=== PATIENT | male | born 1950 | race Caucasian/White ===

== ENCOUNTER 2023-08-21 16:43 | Emergency (ER) | payer OTHER, SELFPAY ==
[2023-08-21 16:46] VITALS: BP 169/97
--- NOTE | 2023-08-21 18:24 | ED.SKININJ ---
HPI-Injury
General
Chief Complaint: Skin Surface Trauma
Source: patient
Exam Limitations: none
Time Seen by Provider: 08/21/23 17:55
Travel History
Have you had any contact with someone who has COVID-19?: No
Do you have any symptoms of coronavirus? Fever > 100 degrees, chills, cough, shortness of breath, sore throat, loss of taste or smell, muscle aches, or headache?: No
History of Present Illness-Injury
Is this injury a work related problem?: No
Is pt an associate of [facility]?: No
Initial Injury comments:
This is a 73 year old male that comes in with c/o fifth finger injury. States that he was slicing Potatoes with his slicer and cut the tip of his fifth finger off. States that his Tetanus was about 6 years ago. States that he does take Aspirin
daily. Denies any fever, chills, nausea, vomiting, diarrhea.
Past History
Past History
ED Past Medical History: CAD, HTN, NE, Psychiatric and Other (Angina)
ED Past Surgical History: Appendectomy, Cardiac (Bypass surgery), Orthopedic (Left knee reconstruction) and Other (Nasal surgery, Eye surgery)
Social History
Tobacco: Former smoker
Alcohol: Occasional
Drug: None
Personal:
Living: alone
Employment: Employed
Family History
Family History: Diabetes, Hypertension and CAD
Review of Systems
Review of Systems
All Other Systems: ROS reviewed and negative except as documented in HPI and ROS
Constitutional: Reports no symptoms; Denies fever or chills
EENT: Reports no symptoms
Respiratory: Reports no symptoms
Cardiac: Reports no symptoms
ABD/GI: Reports no symptoms
Musculoskeletal: Reports no symptoms
Skin: Reports other (avulsion of the fifth finger)
Neurological: Reports no symptoms
Psychiatric: Reports no symptoms
Skin Exam
Avulsion
Right Distal Fifth Finger:
Type of avulsion injury: avulsion
Any active bleeding?: significant bleeding
Distal skin color and temperature: normal-warm & good color
Normal distal neurovascular exam: Yes
Phy Exam
General Physical Exam
General Presentation: no apparent distress
General age: appears stated age
General Skin: warm and dry
General Habitus: elderly
General Mental: alert
General Hydration: appears well hydrated
Eye Exam
Eye Exam: EOMI
Musculoskeletal Exam
Musculoskeletal Exam: full ROM
Skin Exam
Skin Exam: normal color, warm/dry, no rash, no petechia and other (Avulsion of the right fifth distal finger with slight nail involvement at the tip. )
Psychiatric Exam
Psychiatric Exam: normal mood/affect
Course
Vital Signs
Initial and Last Documented VS:
Initial Vital Signs
Temp Pulse Resp BP Pulse Ox
97.9 F 67 16 169/97 97
08/21/23 16:46 08/21/23 16:46 08/21/23 16:46 08/21/23 16:46 08/21/23 16:46
Last Documented Vital Signs
Temp Pulse Resp BP Pulse Ox
97.9 F 67 16 169/97 97
08/21/23 16:46 08/21/23 16:46 08/21/23 16:46 08/21/23 16:46 08/21/23 16:46
MDM/Problems Addressed
Differential Diagnosis Includes:
Skin Avulsion
MDM/Problems Addressed:
Patient states that he was slicing potatoes when he cut the tip of his finger. States that his Tetanase was 6 years ago.
Will use Surgafoam and apply a dressing. Will recheck.
Chronic conditions affecting care:
NA
Acute Exacerbation and/or Progression of Chronic Illness:
NA
*Pulse Oximetry
Patient hypoxic: no
*EKG
Interpreted by ED Provider?: NA
Rate: EKG- N/A
*Poultice Machine Operator Interpretation
Rate: Poultice Machine Operator- N/A
*Critical Care Note
Total Time (30-74mins, 75-104mins- exclusive of procedures): Not Applicable
ED Attending Note
-
Portions of this chart may have been created with voice recognition software.� Occasional wrong word or��sound alike� substitutions may have occurred due to the inherent limitations of voice recognition software.
Discharge Plan
Departure
Patient Disposition: Home (Routine Discharge)
Date of Disposition: 08/21/23
Time of Disposition: 18:38
Patient with high blood pressure during this ER visit?: Yes
Condition: Good
Covid-19: Not Applicable
Discharge Problem:
Avulsion of finger tip
Instructions: Wound Care (DC), BLOOD PRESSURE
Prescriptions:
No Action
Vitamin C 1,000 MG Tablet
1,000 mg PO DAILY AT 0700
Multivitamin Tablet
1 tab PO DAILY
Vitamin B-6 100 MG Tablet
100 mg PO DAILY
Aspirin Low Dose 81 MG Tablet
81 mg PO DAILY
Crestor
20 mg PO DAILY
Patient Comments:
not sure of dose
Norvasc:
10 mg PO DAILY
Patient Comments:
unsure of dose
mometasone [Nasonex] 17 GM spray,non-aerosol
17 gm NS DAILY Qty: 1 0RF
Rx Instructions:
two sprays each nostrils daily PRN
citalopram 10 MG tablet
10 mg PO DAILY
lisinopril 10 MG tablet
0.5 tab PO BID
metoprolol succinate 12.5 MG tablet extended release 24 hr
12.5 mg PO BID
cholecalciferol (vitamin D3) 1,250 MCG capsule
1,250 mcg PO DAILY AT 0700
Activity Restrictions/Additional Instructions:
As discussed, you have an avulsion of the right fifth finger. Please keep our finger dry for the next 24 hours. Please leave the Surgifoam on the tip of the finger as this will help protect your finger and keep it from bleeding. You may change the
outer dressing after 24 hours. Try and keep your hand elevate tonight as this will decrease the throbbing. You may use Tylenol 1000mg every 6 hours for pain. Follow up with the family doctor for recheck. IF YOU HAVE ANY OTHER CONCERNS PLEASE RETURN
TO THE EMERGENCY ROOM.
Interventions
Interventions:
*ED COVID-19 Vaccine History Last Done: 08/21/23 16:46
Discharge Date and Time
Print Language: TURKMEN
[2023-08-21] MEDS: ADACEL 0.5 ML IM (19:09)
[2023-08-21 19:40] VITALS: BP 157/103
[2023-08-21 20:11] VITALS: BP 157/103
== END 2023-08-21 19:40 | disposition home or self-care (01) ==
LOC: EMR 16:43
PROVIDERS: EMERGENCY PHYSICIAN Emergency Medicine; FAMILY PHYSICIAN Family Medicine
DX: S61.216A Laceration without foreign body of right little finger without damage to nail, initial encounter (principal); W45.8XXA Other foreign body or object entering through skin, initial encounter; Z23 Encounter for immunization; I25.10 Atherosclerotic heart disease of native coronary artery without angina pectoris; I10 Essential (primary) hypertension; I25.2 Old myocardial infarction; Z87.891 Personal history of nicotine dependence; Z83.3 Family history of diabetes mellitus; Z82.49 Family history of ischemic heart disease and other diseases of the circulatory system
CPT/HCPCS: 99282; 90471; 90715